=== PATIENT | female | born 1945 | race Asian ===

== ENCOUNTER 2017-11-18 05:57 | Day surgery (SDC) | payer OTHER ==
[2017-11-18] MEDS ORDERED: CARBACHOL 0.01% 1.5 ML OPH INJ (06:37)
[2017-11-18] MEDS ORDERED: DEXAMETHASONE 4 MG/ML 1 ML INJ (06:37)
[2017-11-18] MEDS ORDERED: GENTAMICIN 80 MG INJ (06:37)
[2017-11-18] MEDS ORDERED: LIDOCAINE 4% (MPF) 5 ML INJ (06:37)
[2017-11-18] MEDS ORDERED: EPINEPHrine 1 MG INJ (06:37)
[2017-11-18] MEDS ORDERED: CEFAZOLIN 1 GM INJ (06:37)
[2017-11-18] MEDS ORDERED: PROPOFOL 200 MG INJ (07:00)
[2017-11-18] MEDS ORDERED: SOD CHLORIDE 0.9% 1,000 ML IV (07:00)
[2017-11-18] MEDS: CYCLOPENTOLATE/PHENYLEPH 2 ML OPH OPER (07:20)
[2017-11-18] MEDS: TROPICAMIDE 1% 3 ML OPH OPER (07:20)
[2017-11-18] MEDS: MOXIFLOXACIN 0.5% 3 ML OPH OPER (07:21)
[2017-11-18] MEDS: DICLOFENAC 0.1% 2.5 ML OPH OPER (07:21)
[2017-11-18] MEDS: CARBACHOL 0.01% 1.5 ML OPH INJ IO (08:20)
[2017-11-18] MEDS: DEXAMETHASONE 4 MG/ML 1 ML INJ INJ (08:20)
[2017-11-18] MEDS: CEFAZOLIN 1 GM INJ INJ (08:20)
== END 2017-11-18 10:00 | disposition home or self-care (01) ==
LOC: SDS 05:57
DX: H25.12 Age-related nuclear cataract, left eye (principal); Z79.82 Long term (current) use of aspirin
CPT/HCPCS: 66984; 82962